=== PATIENT | female | born 1970 | race African-American/Black ===

== ENCOUNTER 2025-10-10 07:57 | Outpatient (CLI) | payer MEDICAID, SELFPAY ==
--- NOTE | ~2025-10-10 | US_ITS ---
EXAMINATION: US abdomen complete DATE: 10/10/2025 09:42 INDICATION: Abnormal test TECHNIQUE: Multiple grayscale and Doppler ultrasound images of the abdomen were obtained. COMPARISON: None FINDINGS: Mild diffusely increased echotexture of the liver noted with no discrete lesions or masses. No ductal dilatation. Maximum size appears to be about 13 cm. Pancreas is poorly seen. Hepatopedal portal venous flow No cholelithiasis or gross sonographic evidence of acute cholecystitis. Spleen and both kidneys appear normal. No free fluid seen. IMPRESSION: 1. Mildly increased echotexture of the liver which could be associated with fatty infiltrative changes. 2. Incomplete evaluation of the pancreas. Reviewed, dictated and finalized at location A. [employer] IMPRESSION: 1. Mildly increased echotexture of the liver which could be associated with fat ty infiltrative changes. 2. Incomplete evaluation of the pancreas.
== END 2025-10-10 07:58 | disposition home or self-care (01) ==
PROVIDERS: PCP Internal Medicine Infectious Disease; Visit Provider Internal Medicine Medical Oncology
DX: R93.2 Abnormal findings on diagnostic imaging of liver and biliary tract (principal); K86.9 Disease of pancreas, unspecified; R79.89 Other specified abnormal findings of blood chemistry
CPT/HCPCS: 76700